=== PATIENT | female | born 1960 | race Caucasian/White ===

== ENCOUNTER 2017-05-12 14:16 | Emergency (ER) | payer OTHER ==
[~2017-05-12] VITALS: Ht 165.1 cm; Wt 54.0 kg
[~2017-05-12 14:16] MED LIST: CLON2TAB15; QUET300T13; SERT100T; [UNRECOGNIZED DRUG - CODE]
[2017-05-12 14:20] VITALS: Ht 165.1 cm; Wt 54.0 kg
--- NOTE | 2017-05-12 17:16 | ERD ---
ER Documentation Chief Complaint Chief Complaint FEELING SICK X4 DAYS HPI 56-year-old female patient with a past medical history of psychosis presents to the ED complaining of a productive cough and rhinorrhea that started intermittently for 1 week and worsened in 4 days. States that she has tried over the counter cough medication which has not helped. Denies any chest pain, shortness of breath, wheezing, abdominal pain, nausea, vomiting, diarrhea, dyspnea on exertion, orthopnea. Denies any sick contacts. ROS All systems reviewed and are negative except as per history of present illness. Medications Home Meds Active Scripts Albuterol Sulfate* (Albuterol Sulfate* Neb) 0.083%-3 Ml Neb, 2.5 MG NEB Q4 Y for SHORTNESS OF BREATH, #30 EA Prov:SHERI CASTANO PA-C 05/12/17 Azithromycin* (Zithromax*) 250 Mg Tablet, 250 MG PO .ZPACK DIRECTED, #6 TAB TAKE 500 MG (2 TABS) THE FIRST DAY THEN 250 MG (1 TAB) DAYS 2-5 Prov:SHERI CASTANO PA-C 05/12/17 Reported Medications Chloral Hydrate (Somnote) 500 Mg Capsule 07/31/10 Clonazepam (Klonopin) 2 Mg Tablet 06/17/10 Sertraline Hcl* (Zoloft*) 100 Mg Tablet 06/17/10 Quetiapine Fumarate* (Seroquel*) 300 Mg Tablet 06/17/10 Allergies Allergies: Coded Allergies: acetaminophen (Verified Allergy, Mild, HAS HEP C, 11/25/14) chlorpromazine (Verified Allergy, Mild, PARALYSIS, 11/25/14) PMhx/Soc History of Surgery: No Anesthesia Reaction: No Hx Neurological Disorder: No Hx Respiratory Disorders: No Hx Cardiac Disorders: No Hx Psychiatric Problems: Yes (DEPRESSION) Hx Miscellaneous Medical Probl: No Hx Alcohol Use: No Hx Substance Use: No Hx Tobacco Use: Yes Smoking Status: Never smoker Physical Exam Vitals Vital Signs Date Time Temp Pulse Resp B/P Pulse Ox O2 Delivery O2 Flow Rate FiO2 05/12/17 14:20 98.2 99 16 108/58 96 Physical Exam Const: Uyo-tbw-fupcitnkg, well-nourished. In no acute distress. Head: Atraumatic, normocephalic Eyes: Normal Conjunctiva without injection. No purulent discharge. PERRL. EOMI ENT: Normal external ear. Ear canal without erythema. Tympanic membrane pearly thacker without effusion or bulging. Nasal canal clear with normal turbinates. Moist oropharynx without tonsillar exudates. Non-erythematous pharynx. Uvula midline. No drooling. No trismus. Neck: Full range of motion. No meningismus. No cervical lymphadenopathy. Resp: Clear to auscultation bilaterally. No wheezing, rhonchi, rales, or crackles. No accessory muscle use. No retractions. Cardio: Regular rate and rhythm. No murmurs, rubs or gallops. Abd: Soft, non tender, non distended. Normal bowel sounds. No palpable masses. No rebound tenderness. No guarding. Skin: No petechiae or rashes Back: No midline tenderness. No CVA tenderness. Ext: No cyanosis, or edema. Neur: Awake and alert. Psych: Normal Mood and Affect Procedures/MDM This is a 56-year-old female patient with no significant past medical history presents to the ED complaining of a productive cough and rhinorrhea that started 4 days ago. Patient is afebrile and nontoxic-appearing. Patient has normal vital signs. A chest x-ray was ordered to further evaluate patient. PROCEDURE: XR Chest. CLINICAL INDICATION: Cough. TECHNIQUE: Single frontal view. COMPARISON: None. FINDINGS: The lungs are clear. The heart size is normal. There is no pleural effusion. There is no pneumothorax. IMPRESSION: 1. Normal chest radiograph. This patient presents to the ED with symptoms consistent with bronchitis. Patient is afebrile and has normal vital signs. Patient's physical exam include lungs which were clear to auscultation and a normal pulse oximetry. There is a low suspicion for pneumonia, pneumothorax, mononucleosis, pulmonary embolism, epiglottitis, otitis media, otitis externa, viral/strep pharyngitis, sinusitis, peritonsillar abscess, mastoiditis, retropharyngeal abscess, meningitis, sepsis, acute abdomen or other emergent conditions. Discharge medications: Zithromax, albuterol nebulizing solution Patient was instructed to return to the ED for any new or worsening symptoms. They should otherwise follow up with the primary care provider within 1-2 days. The patient's questions were answered at the time of discharge. Patient understood and agreed with discharge management. Departure Diagnosis: Primary Impression: Cough Additional Impression: Rhinorrhea Condition: Stable Referrals: [facility] YOU HAVE RECEIVED A MEDICAL SCREENING EXAM AND THE RESULTS INDICATE THAT YOU DO NOT HAVE A CONDITION THAT REQUIRES URGENT TREATMENT IN THE EMERGENCY DEPARTMENT. FURTHER EVALUATION AND TREATMENT OF YOUR CONDITION CAN WAIT UNTIL YOU ARE SEEN IN YOUR DOCTORS OFFICE WITHIN THE NEXT 1-2 DAYS. IT IS YOUR RESPONSIBILITY TO MAKE AN APPOINTMENT FOR FOLOW-UP CARE. IF YOU HAVE A PRIMARY DOCTOR --you should call your primary doctor and schedule an appointment IF YOU DO NOT HAVE A PRIMARY DOCTOR YOU CAN CALL OUR PHYSICIAN REFERRAL HOTLINE AT IF YOU CAN NOT AFFORD TO SEE A PHYSICIAN YOU CAN CHOSE FROM THE FOLLOWING [facility][1] [address] [facility] [facility] [address] [address] [facility] [address] [facility] [facility] [address] [facility] [address] [facility] [address] [facility] [facility] [address] [facility]. [facility] YOU HAVE RECEIVED A MEDICAL SCREENING EXAM AND THE RESULTS INDICATE THAT YOU DO NOT HAVE A CONDITION THAT REQUIRES URGENT TREATMENT IN THE EMERGENCY DEPARTMENT. FURTHER EVALUATION AND TREATMENT OF YOUR CONDITION CAN WAIT UNTIL YOU ARE SEEN IN YOUR DOCTORS OFFICE WITHIN THE NEXT 1-2 DAYS. IT IS YOUR RESPONSIBILITY TO MAKE AN APPOINTMENT FOR FOLOW-UP CARE. IF YOU HAVE A PRIMARY DOCTOR --you should call your primary doctor and schedule and appointment IF YOU DO NOT HAVE A PRIMARY DOCTOR YOU CAN CALL OUR PHYSICIAN REFERRAL HOTLINE AT . IF YOU CAN NOT AFFORD TO SEE A PHYSICIAN YOU CAN CHOSE FROM THE FOLLOWING [facility] INSTITUTIONS: [facility] [address] [place] [address] [facility] [address] [place] [address] [facility] [address] [place] [address] [facility] Additional Instructions: Call your primary care doctor TOMORROW for an appointment during the next 2-3 days.See the doctor sooner or return here if your condition worsens before your appointment time. SHERI CASTANO PA-C May 12, 2017 17:16
--- NOTE | 2017-05-12 17:31 | RADRPT ---
PROCEDURE: XR Chest. CLINICAL INDICATION: Cough. TECHNIQUE: Single frontal view. COMPARISON: None. FINDINGS: The lungs are clear. The heart size is normal. There is no pleural effusion. There is no pneumothorax. IMPRESSION: 1. Normal chest radiograph. RPTAT: QQ .Arsalan Lino MD, MD Date Time Electronically viewed and signed by .Arsalan Lino MD, on 05/12/2017 17:31 .R/
[2017-05-12] MEDS ORDERED: AZIT250T94 PO (17:44)
[2017-05-12] MEDS ORDERED: ALBU18HF INHALATION (18:05)
[2017-05-12] MEDS ORDERED: ALBU2.5V3 NEB (18:09)
== END 2017-05-12 18:13 | disposition home or self-care (01) ==
LOC: FTE 14:16
DX: J34.89 Other specified disorders of nose and nasal sinuses (principal); Z87.891 Personal history of nicotine dependence
CPT/HCPCS: 71010; Z7502

== ENCOUNTER 2018-08-08 18:43 | Emergency (ER) | payer OTHER ==
[~2018-08-08] VITALS: Ht 160 cm; Wt 67.8 kg
[~2018-08-08 18:43] MED LIST changes: +ALBU2.5V3 NEB; +AZIT250T PO; -QUET300T13; +QUET300T2
[2018-08-08 18:49] VITALS: Ht 160 cm; Wt 67.8 kg
[2018-08-08] MEDS ORDERED: CLON2TAB12 PO (21:47)
[2018-08-08] MEDS ORDERED: AZIT250T PO (21:51)
[2018-08-08] MEDS ORDERED: BENZ-5 PO (21:52)
[2018-08-08] MEDS ORDERED: clonAZEPAM 0.5 MG TAB PO ONE ×3 (22:00)
[2018-08-08 22:08] VITALS: BP 126/61; PULSE 80; RESP 18
--- NOTE | 2018-08-10 17:39 | ERD ---
ER Documentation Chief Complaint Chief Complaint cough x 1 week HPI 57-year-old female with a past history of anxiety presents with complaint of cough for 1 week. In addition patient states that she ran out of her Klonopin. Says she takes 2 mg twice daily. Patient denies fever, night sweats, weight loss, fatigue, hemoptysis, wheezing, dyspnea, pleuritic chest pain, or orthopnea. Denies past medical history. Denies allergies. Denies medications. Denies surgeries. Denies alcohol, tobacco, or drug use. ROS All systems reviewed and are negative except as per history of present illness. Medications Home Meds Active Scripts Benzonatate* (Benzonatate*) 100 Mg Capsule, 100 MG PO TID PRN for COUGH, #20 CAP Prov:JUAN MANUEL PATTON 08/08/18 Azithromycin* (Zithromax*) 250 Mg Tablet, 250 MG PO .ZPACK DIRECTED, #6 TAB TAKE 500 MG (2 TABS) THE FIRST DAY THEN 250 MG (1 TAB) DAYS 2-5 Prov:JUAN MANUEL PATTON 08/08/18 Clonazepam* (Clonazepam*) 2 Mg Tablet, 2 MG PO BID, #4 TAB Prov:MARIA ALEJANDRAADRIANHERMELINDAJUAN MANUEL 08/08/18 Albuterol Sulfate* (Albuterol Sulfate* Neb) 0.083%-3 Ml Neb, 2.5 MG NEB Q4 PRN for SHORTNESS OF BREATH, #30 EA Prov:SHERI CASTANO PA-C 05/12/17 Azithromycin* (Zithromax*) 250 Mg Tablet, 250 MG PO .ZPACK DIRECTED, #6 TAB TAKE 500 MG (2 TABS) THE FIRST DAY THEN 250 MG (1 TAB) DAYS 2-5 Prov:SHERI CASTANO PA-C 05/12/17 Reported Medications Chloral Hydrate (Somnote) 500 Mg Capsule 07/31/10 Clonazepam (Klonopin) 2 Mg Tablet 06/17/10 Sertraline Hcl* (Zoloft*) 100 Mg Tablet 06/17/10 Quetiapine Fumarate* (Seroquel*) 300 Mg Tablet 06/17/10 Allergies Allergies: Coded Allergies: acetaminophen (Verified Allergy, Mild, HAS HEP C, 11/25/14) chlorpromazine (Verified Allergy, Mild, PARALYSIS, 11/25/14) PMhx/Soc Medical and Surgical Hx: pt denies Surgical Hx History of Surgery: No Anesthesia Reaction: No Hx Neurological Disorder: No Hx Respiratory Disorders: No Hx Cardiac Disorders: No Hx Psychiatric Problems: Yes (DEPRESSION) Hx Miscellaneous Medical Probl: No Hx Alcohol Use: No Hx Substance Use: No Hx Tobacco Use: Yes Smoking Status: Current every day smoker FmHx Family History: No diabetes, No coronary disease, No other Physical Exam Vitals Vital Signs Date Temp Pulse Resp B/P (MAP) Pulse Ox O2 O2 Flow FiO2 Time Delivery Rate 08/08/18 98.4 80 18 126/61 100 Room Air 22:08 (82) 08/08/18 98.4 103 18 125/55 98 18:49 (78) Physical Exam Const: No acute distress Head: Atraumatic Eyes: Normal Conjunctiva ENT: Normal External Ears, Nose and Mouth. Neck: Full range of motion. No meningismus. Resp: Clear to auscultation bilaterally Cardio: Regular rate and rhythm, no murmurs Abd: Soft, non tender, non distended. Normal bowel sounds Skin: No petechiae or rashes Back: No midline or flank tenderness Ext: No cyanosis, or edema Neur: Awake and alert Psych: Normal Mood and Affect Results 24 hrs Current Medications Medications Dose Sig/Blake Start Time Status Last (Trade) Ordered Route PRN Stop Time Admin Dose Reason Admin Clonazepam 1 mg ONCE ONCE 08/08/18 Cancel (Klonopin) PO 22:00 08/08/18 22:01 Clonazepam 1 mg ONCE ONCE 08/08/18 Cancel (Klonopin) PO 22:00 08/08/18 22:01 Clonazepam 2 mg ONCE ONCE 08/08/18 DC 08/08/18 (Klonopin) PO 22:00 22:04 08/08/18 22:01 Procedures/MDM MDM: 57-year-old female with a past history of anxiety presents with complaint of cough for 1 week. In addition patient states that she ran out of her Klonopin. Says she takes 2 mg twice daily. Patient denies fever, night sweats, weight loss, fatigue, hemoptysis, wheezing, dyspnea, pleuritic chest pain, or orthopnea.I have low suspicion for strep throat based on patient not meeting centor criteria for rapid strep testing. I have low suspicion for bacterial sinusitis. I have low suspicion for pneumonia, tuberculosis, meningitis, pleural effusion, or other life threatening etiology based on patient history and exam findings.. Patient given rx for azithromycin and benzonatate. In addition patient was given 2 mg of Klonopin in the ER and discharged with 2 days worth of Klonopin, enough to ensure she has until she gets her refill from her primary. Patient advised to rest and stay well hydrated. Patient discharged with strict ER precautions. Patient advised to follow up with PMD. All questions answered at discharge. Departure Diagnosis: Primary Impression: Cough Additional Impression: Anxiety Condition: Stable Patient Instructions: Anxiety Reaction, Cough, Chronic, Uncertain Cause, (Adult) Referrals: [facility] YOU HAVE RECEIVED A MEDICAL SCREENING EXAM AND THE RESULTS INDICATE THAT YOU DO NOT HAVE A CONDITION THAT REQUIRES URGENT TREATMENT IN THE EMERGENCY DEPARTMENT. FURTHER EVALUATION AND TREATMENT OF YOUR CONDITION CAN WAIT UNTIL YOU ARE SEEN IN YOUR DOCTORS OFFICE WITHIN THE NEXT 1-2 DAYS. IT IS YOUR RESPONSIBILITY TO MAKE AN APPOINTMENT FOR FOLOW-UP CARE. IF YOU HAVE A PRIMARY DOCTOR --you should call your primary doctor and schedule an appointment IF YOU DO NOT HAVE A PRIMARY DOCTOR YOU CAN CALL OUR PHYSICIAN REFERRAL HOTLINE AT IF YOU CAN NOT AFFORD TO SEE A PHYSICIAN YOU CAN CHOSE FROM THE FOLLOWING [facility] [address] [facility]. [facility] [address] [facility] [place] [address] [facility]. [facility] [address] [facility] [facility] [address] [facility] [facility]. [address] Additional Instructions: FOLLOW UP WITH YOUR PRIMARY CARE PHYSICIAN TOMORROW.Return to this facility if you are not improving as expected. JUAN MANUEL PATTON Aug 10, 2018 17:39
== END 2018-08-08 22:09 | disposition home or self-care (01) ==
LOC: FTE 18:43
DX: R05 Cough (principal); F41.9 Anxiety disorder, unspecified; F17.210 Nicotine dependence, cigarettes, uncomplicated
CPT/HCPCS: 99283